=== PATIENT | male | born 1990 | race Asian ===

== ENCOUNTER 2020-01-17 11:19 | Observation (INO) ==
[2020-01-17] MEDS ORDERED: SODIUM CHLORIDE 0.9% 1000ML 1,000 ML IV SCH (11:30)
--- NOTE | 2020-01-17 11:31 | Emergency Department Note ---
History of Present Illness General Chief complaint: Abdominal Pain Stated complaint: VOMITING, FREQUENT URINATION, ABD PAIN R SIDE Time Seen by Provider: 01/17/20 11:27 History of Present Illness Maximum Pain Intensity: 7 The patient is a 29-year-old male who presented to the emergency department for evaluation of abdominal pain. The patient started noticing abdominal pain yesterday. Initially the pain was diffuse and lower but it is now localized in his right lower quadrant. The patient started having symptoms yesterday which include nausea vomiting as well as diarrhea. He has had no fever. He denies having any hematuria or back pain. He does noticed some epigastric pain which relieved with belching. The patient has not been seen by any provider for the symptoms. The patient denies having any recent traveling. He denies having any cough or URI symptoms. The patient's pain is moderate and worsened with any movement or ambulation. The patient states his pain is minimally relieved with lying still. Home Medications Home Medications Medication Instructions Recorded Confirmed Type No Known Home Medications 01/17/20 01/17/20 History Allergies Allergy/AdvReac Type Severity Reaction Status Date / Time No Known Allergies Allergy Verified 01/17/20 13:47 Past Med/Surg History Medical History Seasonal allergies Social History Feels Safe at Home: Yes Smoking Status: Never smoker Hx Alcohol Use: Yes Hx Substance Use: No Review of Systems See HPI for pertinent positives & negatives. and A total of 10 systems reviewed and were otherwise negative Physical Exam Vital Signs Vital Signs - 24 hr 01/17/20 11:21 01/17/20 11:51 01/17/20 12:33 Temperature 36.7 C Temperature Source Oral Pulse Rate 94 H 71 Pulse Rate [Left Finger] Pulse Rate from SpO2 Sensor 70 Pulse Rhythm [Left Finger] Respiratory Rate 18 15 Respiratory Effort / Characteristics Respiratory Depth Normal Respiratory Pattern Blood Pressure 146/79 H 107/69 Blood Pressure [Left Arm] Blood Pressure Mean 101 82 Blood Pressure Mean [Left Arm] Blood Pressure Position [Left Arm] Pulse Oximetry 99 98 100 Oxygen Delivery Method Room Air Room Air Sepsis Recent Fever Within 48 Hours No Sepsis Action Taken by Nursing No Action Required 01/17/20 12:36 01/17/20 12:40 01/17/20 12:50 Temperature Temperature Source Pulse Rate 59 L 87 75 Pulse Rate [Left Finger] Pulse Rate from SpO2 Sensor 59 L 89 79 Pulse Rhythm [Left Finger] Respiratory Rate 16 20 15 Respiratory Effort / Characteristics Respiratory Depth Respiratory Pattern Blood Pressure Blood Pressure [Left Arm] Blood Pressure Mean Blood Pressure Mean [Left Arm] Blood Pressure Position [Left Arm] Pulse Oximetry 100 98 97 Oxygen Delivery Method Sepsis Recent Fever Within 48 Hours Sepsis Action Taken by Nursing 01/17/20 13:00 01/17/20 13:10 01/17/20 13:20 Temperature Temperature Source Pulse Rate 59 L 66 62 Pulse Rate [Left Finger] Pulse Rate from SpO2 Sensor 59 L 67 62 Pulse Rhythm [Left Finger] Respiratory Rate 20 18 18 Respiratory Effort / Characteristics Respiratory Depth Respiratory Pattern Blood Pressure Blood Pressure [Left Arm] Blood Pressure Mean Blood Pressure Mean [Left Arm] Blood Pressure Position [Left Arm] Pulse Oximetry 98 98 99 Oxygen Delivery Method Sepsis Recent Fever Within 48 Hours Sepsis Action Taken by Nursing 01/17/20 13:21 01/17/20 13:41 Temperature 37.4 C Temperature Source Oral Pulse Rate 62 Pulse Rate [Left Finger] 70 Pulse Rate from SpO2 Sensor 63 Pulse Rhythm [Left Finger] Regular Respiratory Rate 18 18 Respiratory Effort / Characteristics Non-Labored Spontaneous Normal for Patient Respiratory Depth Normal Respiratory Pattern Regular Blood Pressure 107/74 Blood Pressure [Left Arm] 121/69 Blood Pressure Mean 86 Blood Pressure Mean [Left Arm] 86 Blood Pressure Position [Left Arm] Semi-fowlers Pulse Oximetry 99 100 Oxygen Delivery Method Room Air Room Air Sepsis Recent Fever Within 48 Hours Sepsis Action Taken by Nursing GENERAL: Patient is awake alert in no acute distress patient is resting comfortably and showing no signs of anxiety EYES: The conjunctivae are clear. The pupils are round and reactive. EARS, NOSE, MOUTH AND THROAT: The nose is without any evidence of any deformity. Mucous membranes are moist. Tongue is midline. NECK: The neck is nontender and supple. RESPIRATORY: Normal respiratory effort is noted there is no evidence of wheezing rhonchi or rales CARDIOVASCULAR: Regular rate and rhythm noted there no murmurs rubs or gallops normal S1 normal S2. GASTROINTESTINAL: The abdomen is moderately distended and diffusely tender. There is guarding in the right lower quadrant. MUSCULOSKELETAL/EXTREMITIES: There is no evidence of gross deformity full range of motion is noted in the hips and shoulders. SKIN: There is no obvious evidence of any rash. There are no petechiae, pallor or cyanosis noted. NEUROLOGIC: Patient is awake alert and oriented x3. Course Course 1225: I reevaluated the patient to discuss his CAT scan report with him. He is very uncomfortable and at this time is requesting medication for pain 1230: I discussed this case with Josephine who is covering for surgery. They will evaluate the patient in the emergency department for further management and disposition. Administered Medications Fentanyl Citrate (Fentanyl Citrate) 50 mcg IV Q15M PRN PRN Reason: Pain Stop: 01/31/20 12:24 Last Admin: 01/17/20 12:32 Dose: 50 mcg Documented by: [id number] Ioversol (Optiray 320 100ml) 94 ml IV ONCE PRN PRN Reason: Interaction Checking Stop: 01/21/20 12:02 Last Admin: 01/17/20 12:04 Dose: 94 ml Documented by: [id number] Discontinued Medications Sodium Chloride (Nss 1000ml) 1,000 mls @ 999 mls/hr IV .Q1H1M MAGALIS Stop: 01/17/20 12:30 Last Infusion: 01/17/20 13:22 Dose: 0 mls/hr Documented by: [id number] Admin: 01/17/20 11:47 Dose: 999 mls/hr Documented by: [id number] Cefoxitin Sodium (Mefoxin) 2,000 mg in 60 mls @ 100 mls/hr IV NOW STA Stop: 01/17/20 13:35 Last Infusion: 01/17/20 14:30 Dose: 0 mls/hr Documented by: [id number] Admin: 01/17/20 14:29 Dose: 100 mls/hr Documented by: [id number] Ondansetron HCl (Zofran) 4 mg IV NOW STA Stop: 01/17/20 12:26 Last Admin: 01/17/20 12:32 Dose: 4 mg Documented by: [id number] Medical Decision Making Differential Diagnosis Etiologies such as appendicitis, diverticulitis, obstruction, inflammatory bowel disease, renal colic, PUD, biliary pathology, pancreatitis, mesenteric ischemia, aortic pathology, infections, genitourinary, UTI, perforated viscus, as well as others were entertained. Medical Records Attestation: I reviewed the patient's medical records. Home Medications Current Medication List: was personally reviewed by me Laboratory Data Attestation: I reviewed the patient's lab results. Result diagrams: 01/17/20 11:45 01/17/20 11:45 Lab Results 01/17/20 01/17/20 01/17/20 Range/Units 11:45 11:45 11:52 WBC 16.96 H (4.8-10.8) K/uL RBC 5.77 (4.7-6.1) M/uL Hgb 16.8 (14.0-18.0) g/dL POC Hgb 17.0 (14.0-18.0) g/dl Hct 48.6 (42-52) % POC Hct 50 (42-52) % MCV 84.2 (80-100) fL MCH 29.1 (25-34) pg MCHC 34.6 (32-36) g/dL RDW Std Deviation 42.0 (36.4-46.3) fL RDW Coeff of Rickie 13.7 (11.5-14.5) % Plt Count 283 (130-400) K/uL MPV 11.4 H (7.4-10.4) fL Immature Gran % (Auto) 0.2 % Neut % (Auto) 80.0 % Lymph % (Auto) 12.4 % Greene % (Auto) 7.1 % Eos % (Auto) 0.2 % Baso % (Auto) 0.1 % Immature Gran # (Auto) 0.04 H (0.00-0.02) K/uL Neut # (Auto) 13.57 H (1.4-6.5) K/uL Lymph # (Auto) 2.10 (1.2-3.4) K/uL Greene # (Auto) 1.20 H (0.11-0.59) K/uL Eos # (Auto) 0.04 (0-0.5) K/uL Baso # (Auto) 0.01 (0-0.2) K/uL POC Sodium 137 (135-144) mmol/L Sodium 136 (136-145) mmol/L POC Potassium 3.9 (3.3-5.0) mmol/L Potassium 3.8 (3.5-5.1) mmol/L POC Chloride 100 L (101-112) mmol/L Chloride 103 (98-107) mmol/L Carbon Dioxide 28 (21-32) mmol/L POC Total CO2 27 (24-31) mEq/l Anion Gap 6.0 (3-11) POC Anion Gap 16.0 (16-25) mmol/L POC BUN 8 (7-18) mg/dl BUN 10 (7-18) mg/dl Creatinine 1.04 (0.6-1.4) mg/dl POC Creatinine 0.9 (0.6-1.3) mg/dl Est Cr Clr Drug Dosing 91.6 ml/min Est GFR ( Amer) 111.1 Est GFR (Non-Af Amer) 95.9 BUN/Creatinine Ratio 9.5 L (10-20) Glucose 114 H (70-99) mg/dl POC Glucose (other) 119 H (70-99) mg/dl Calcium 9.2 (8.5-10.1) mg/dl POC Ioniz Calcium Tiffanie 1.20 (1.12-1.32) mmol/l Total Bilirubin 0.7 (0.2-1) mg/dl AST 12 L (15-37) U/L ALT 24 (12-78) U/L Alkaline Phosphatase 110 (45-117) U/L Total Protein 8.2 (6.4-8.2) gm/dl Albumin 4.1 (3.4-5.0) gm/dl Globulin 4.1 H (2.5-4.0) gm/dl Albumin/Globulin Ratio 1.0 (0.9-2) Lipase 105 (73-393) U/L Imaging Data Radiologist's Impression: CT abd pelvis IV con only CT DOSE: 513.22 mGycm HISTORY: RLQ pain TECHNIQUE: Multiaxial CT images of the abdomen and pelvis were performed following the use of intravenous contrast. A dose lowering technique was utilized adhering to the principles of ALARA. COMPARISON STUDY: None. FINDINGS: Lung bases are clear. Liver spleen and pancreas are unremarkable. Kidneys enhance uniformly. Small bowel and to a lesser extent colon demonstrates a slight degree of wall edematous change. This is suggestive of nonspecific enteritis./:/The appendix is also somewhat distended at 10 mm with a small contained appendicolith. This pot entially indicates secondary infiltrative change and/or edematous change of the appendix due to the surrounding small bowel inflammatory change versus enteritis as well as acute appendicitis. There is no evidence for abscess collection or obstructive change. IMPRESSION: 1. Findings consistent with mild generalized small bowel and to a lesser extent colonic enteritis. 2. Distended appendix at 10 mm with a small contained appendicolith. 3. This examination is consistent with that of appendicitis, with superimposed enteritis. 4. Possibility of appendicitis secondary to the inflammatory process the bowel is also considered. 5. No evidence for abscess collection or obstructive change. ACT 112: Negative or not required by law. The above report was generated using voice recognition software. It may contain grammatical, syntax or spelling errors. Electronically signed by: Kody Espinoza M.D. 01/17/2020 12:20 PM Dictated: 01/17/20 1214 Transcribed: 01/17/20 1214 Blood Pressure Blood Pressure Findings: Elevated blood pressure Blood Pressure Disposition: elevated BP felt to be situational MDM Narrative The patient is a 29-year-old male who presented to the emergency department for an evaluation of abdominal pain. The patient's history and physical exam appear to be consistent with appendicitis but he also had nausea vomiting and some diarrhea. For this reason further laboratory and radiographic studies were obtained. I discussed the patient's laboratory and radiographic studies with him. CAT scan appeared to be consistent with appendicitis as well as enteritis. For this reason I discussed this case with the on-call general surgeon. Kena mena agreed to evaluate the patient in the emergency department for further management disposition. The patient was treated with IV fluids and IV pain medication in the emergency department. On subsequent reevaluation he was feeling much better. Impression & Plan Acute appendicitis, Abdominal pain, Enteritis Discharge Plan Visit Data *Final* Discharge Date/Time: 01/17/20 13:21 Chief Complaint: Abdominal Pain Stated Complaint: VOMITING, FREQUENT URINATION, ABD PAIN R SIDE ED Provider: Renan Gonzalez Discharge Problem: Acute appendicitis, Abdominal pain, Enteritis Patient Disposition: Still a Patient Condition: Good Discharge Instructions Interventions: ED Discharge Assessment Last Done: 01/17/20 13:21 Discharge Problem: Acute appendicitis Qualifiers: Acute appendicitis type: with localized peritonitis Appendicitis gangrene presence: without gangrene Appendicitis perforation presence: without perforation Appendicitis abscess presence: without abscess Qualified Code(s): K35.30 - Acute appendicitis with localized peritonitis, without perforation or gangrene Abdominal pain Qualifiers: Abdominal location: right lower quadrant Qualified Code(s): R10.31 - Right lower quadrant pain
[2020-01-17 12:02] LABS: Basophils # (auto) 0.01 K/uL (0-0.2); Basophils % (auto) 0.1 %; Eosinophils # (auto) 0.04 K/uL (0-0.5); Eosinophils % (auto) 0.2 %; Hematocrit (blood only) 48.6 % (42-52); Hemoglobin 16.8 g/dL (14.0-18.0); Immature Granulocytes # (auto) 0.04 K/uL (0.00-0.02); Immature Granulocytes % (auto) 0.2 %; Lymphocytes % (auto) 12.4 %; Mean Corpuscular Hemoglobin 29.1 pg (25-34); Mean Corpuscular Hgb Conc 34.6 g/dL (32-36); Mean Corpuscular Volume 84.2 fL (80-100); Mean Platelet Volume 11.4 fL (7.4-10.4); Monocytes % (auto) 7.1 %; Neutrophils # (auto) 13.57 K/uL (1.4-6.5); Platelet Count 283 K/uL (130-400); RDW Coefficient of Variation 13.7 % (11.5-14.5); Red Blood Count 5.77 M/uL (4.7-6.1); White Blood Count 16.96 K/uL (4.8-10.8)
[2020-01-17] MEDS ORDERED: IOVERSOL 100ml IV PRN (12:03)
[2020-01-17 12:05] LABS: iSTAT Creatinine 0.9 mg/dl (0.6-1.3); iSTAT Ionized Calcium 1.2 mmol/l (1.12-1.32); iSTAT Potassium 3.9 mmol/L (3.3-5.0)
[2020-01-17 12:20] LABS: Albumin Level 4.1 gm/dl (3.4-5.0); BUN Creatinine Ratio 9.5 (10-20); Calcium 9.2 mg/dl (8.5-10.1); Creatinine Clr Calc Pharmacy 91.6 ml/min; Est GFR (African American) 111.1; Est GFR (Non-African American) 95.9; Potassium 3.8 mmol/L (3.5-5.1)
--- NOTE | 2020-01-17 12:22 | CT Scan Report ---
CT abd pelvis IV con only CT DOSE: 513.22 mGycm HISTORY: RLQ pain TECHNIQUE: Multiaxial CT images of the abdomen and pelvis were performed following the use of intrave nous contrast. A dose lowering technique was utilized adhering to the principles of ALARA. COMPARISON STUDY: None. FINDINGS: Lung bases are clear. Liver spleen and pancreas are unremarkable. Kidneys enhance uniformly . Small bowel and to a lesser extent colon demonstrates a slight degree of wall edematous change. This is suggestive of nonspecific enteritis./:/The appendix is also somewhat distended at 10 mm with a sma ll contained appendicolith. This potentially indicates secondary infiltrative change and/or edematous change of the appendix due to the surrounding small bowel inflammatory change versus enteritis as we ll as acute appendicitis. There is no evidence for abscess collection or obstructive change. IMPRESSION: 1. Findings consistent with mild generalized small bowel and to a lesser extent colonic enteritis. 2. Distended appendix at 10 mm with a small contained appendicolith. 3. This examination is consistent with that of appendicitis, with superimposed enteritis. 4. Possibility of appendicitis secondary to the inflammatory process the bowel is also considered. 5. No evidence for abscess collection or obstructive change. ACT 112: Negative or not required by law. The above report was generated using voice recognition software. It may contain grammatical, syntax or spelling errors. Electronically signed by: Kody Espinoza M.D. 01/17/2020 12:20 PM
[2020-01-17 12:23] LABS: Bilirubin,Total 0.7 mg/dl (0.2-1); Globulin 4.1 gm/dl (2.5-4.0); Total Protein 8.2 gm/dl (6.4-8.2)
[2020-01-17] MEDS ORDERED: ONDANSETRON INJ 2 MG/ML 2 ML VIAL IV STA (12:25)
[2020-01-17] MEDS ORDERED: fentaNYL citrate 100 MCG/2 ML VIAL IV PRN ×2 (12:25→13:16)
[2020-01-17] MEDS ORDERED: NEOSTIGMINE METHYLSULFATE 5 MG/5 ML SYR ONE (13:14)
[2020-01-17] MEDS ORDERED: DEXAMETHASONE SOD INJ 4 MG/ML VIAL ONE (13:14)
[2020-01-17] MEDS ORDERED: PROPOFOL IV EMULSION 10 MG/ML 20 ML VIAL IV ONE (13:14)
[2020-01-17] MEDS ORDERED: ONDANSETRON INJ 2 MG/ML 2 ML VIAL ONE (13:14)
[2020-01-17] MEDS ORDERED: GLYCOPYRROLATE 0.2 MG/ML VIAL ONE (13:14)
[2020-01-17] MEDS ORDERED: LIDOCAINE HCL 2% 2 ML VIAL/AMP(20MG/ML) INFIL ONE (13:14)
[2020-01-17] MEDS ORDERED: ROCURONIUM BROMIDE 10 MG/ML 5 ML VIAL ONE (13:14)
[2020-01-17] MEDS ORDERED: MIDAZOLAM HCL 1 MG/ML 2ML VIAL ONE (13:15)
[2020-01-17] MEDS ORDERED: fentaNYL citrate 100 MCG/2 ML VIAL ONE ×2 (13:15→14:51)
[2020-01-17] MEDS ORDERED: ePHEDrine sulfate 50 MG/ML AMP IV PRN (13:16)
[2020-01-17] MEDS ORDERED: LABETALOL HCL IV 5 MG/ML 20ML IV PRN (13:16)
[2020-01-17] MEDS ORDERED: PHENYLEPHRINE 100MCG/ML 5ML SYR IV PRN (13:16)
[2020-01-17] MEDS ORDERED: ONDANSETRON INJ 2 MG/ML 2 ML VIAL IV PRN ×2 (13:16→16:58)
[2020-01-17] MEDS ORDERED: HYDROmorphone INJ 1 MG/ML SYRINGE IV PRN (13:16)
[2020-01-17] MEDS ORDERED: ATROPINE SULFATE 0.1 MG/ML 10ML SYR IV PRN (13:16)
[2020-01-17] MEDS ORDERED: MEPERIDINE HCL 25 MG/ML CARP/VIAL IV PRN (13:16)
--- NOTE | 2020-01-17 13:16 | History & Physical Report ---
Date of Service January 17, 2020 Assessment & Plan (1) Acute appendicitis: This is a 29y M with no significant PMH who presents to the [facility] ED on 01/17/20 with complaints of abdominal pain and vomiting. Workup in the ED revealed findings concerning for acute appendicitis, distended appendix to 10mm & contained appendicolith, along with superimposed enteritis. Patient is acutely tender to palpation in the RLQ and WBC 16.9. We will make him NPO with IVF and start pre-op abx. At this time patient is agreeable to surgical intervention for laparoscopic appendectomy. Dr. Crowley will be by to obtain surgical consent. History of Present Illness Primary Care Provider: NO PCP This is a 29y M with no significant PMH who presents to the [facility] ED on 01/17/20 with complaints of abdominal pain and vomiting. The patient reports his lower abdominal pain started around 6pm yesterday evening after drinking milk. He initially thought he was getting sick due to lactose intolerance. Around 8pm his pain was mostly located in the right lower quadrant and describes it as a constant and dull discomfort. He had a BM and felt somewhat better, but then developed diarrhea x2 thereafter. His symptoms persisted and he ended up vomiting yesterday evening. He tried going to bed, but was awake every 30 minutes or so in pain. He tried multiple times to have a bowel movement during the night/early AM without success. He drank some Gatorade and a had a 1/2 cracker this AM when he ultimately woke up, but he threw it up. He presented to the ED as his pain and symptoms continued. In the ED a ct a/p was performed that revealed findings consistent with appendicitis with superimposed enteritis and patient with a WBC of 16.9. Patient reports his abdominal pain is 7-8/10 and worse with certain movements. He has not been around any sick contacts that he is aware of. Surgery was consulted for further evaluation. Allergies Allergy/AdvReac Type Severity Reaction Status Date / Time No Known Allergies Allergy Verified 01/17/20 13:47 Home Medications Home Medications Medication Instructions Recorded Confirmed Type No Known Home Medications 01/17/20 01/17/20 History Past Med/Surg History Medical History Seasonal allergies Social History Feels Safe at Home: Yes Smoking Status: Never smoker Hx Alcohol Use: Yes Hx Substance Use: No Review of Systems Constitutional: + chills; no fever Respiratory: some shortness of breath secondary to pain Cardiovascular: no chest pain Gastrointestinal: + abdominal pain (primarily located in the right lower abdomen), + bloating, + nausea, + vomiting and + diarrhea/loose stools Physical Exam Physical Exam: awake/alert Constitutional: well developed, well nourished and cooperative Respiratory: normal respiratory effort Gastrointestinal (Abdomen): Inspection/Auscultation: + abdomen distended (mild); no abdominal surgical incision Percussion/Palpation: + abdomen tender (ttp in the RLQ), + guarding and abdomen soft Results & Data Results & Data ([facility]) Vital Signs (Past 12 Hours) Vital Signs Temp Pulse Resp BP Pulse Ox 01/17/20 12:36 59 L 16 100 01/17/20 12:33 71 15 107/69 100 01/17/20 11:51 98 01/17/20 11:21 36.7 C 94 H 18 146/[address] abd pelvis IV con only CT DOSE: 513.22 mGycm HISTORY: RLQ pain TECHNIQUE: Multiaxial CT images of the abdomen and pelvis were performed following the use of intravenous contrast. A dose lowering technique was utilized adhering to the principles of ALARA. COMPARISON STUDY: None. FINDINGS: Lung bases are clear. Liver spleen and pancreas are unremarkable. Kidneys enhance uniformly. Small bowel and to a lesser extent colon demonstrates a slight degree of wall edematous change. This is suggestive of nonspecific enteritis./:/The appendix is also somewhat distended at 10 mm with a small contained appendicolith. This potentially indicates secondary infiltrative change and/or edematous change of the appendix due to the surrounding small bowel inflammatory change versus en teritis as well as acute appendicitis. There is no evidence for abscess collection or obstructive change. IMPRESSION: 1. Findings consistent with mild generalized small bowel and to a lesser extent colonic enteritis. 2. Distended appendix at 10 mm with a small contained appendicolith. 3. This examination is consistent with that of appendicitis, with superimposed enteritis. 4. Possibility of appendicitis secondary to the inflammatory process the bowel is also considered. 5. No evidence for abscess collection or obstructive change. ACT 112: Negative or not required by law. The above report was generated using voice recognition software. It may contain grammatical, syntax or spelling errors. Electronically signed by: Kody Espinoza M.D. 01/17/2020 12:20 PM Supervising Physician Co-Signing Physician Notes Pnt seen and examined, agree with above. 29 y/o male with 24 hours of abdominal pain that migrated to RLQ. + diarrhea, no personal or family history of IBD. afvss, abd ttp in rlq with localized guarding. wbc 16. ct with 10mm appendix with appendicolith and inflammation, some surrounding enteritis and colitis. acute appendicitis plan for laparoscopic appendectomy the risk were discussed to include but not limited to bleeding, infection, abscess, open surgery, need for future or more extensive surgery, damage to surrounding structures, burn injury to piercing, normal appendix, and risks of anesthesia. PG Care Time/CCT Total # of Minutes Spent Total Time Spent with Patient: Total time spent is greater than 50% in coordination of care (as documented) at patient's floor/unit and/or counseling patient: Coding Level of Care Code 17332 OBS Care - Level 3 Diagnoses Acute appendicitis K35.30 Acute appendicitis type: with localized peritonitis Appendicitis abscess presence: without abscess Appendicitis gangrene presence: without gangrene Appendicitis perforation presence: without perforation (1) Acute appendicitis Acute appendicitis type: with localized peritonitis Appendicitis abscess presence: without abscess Appendicitis gangrene presence: without gangrene Appendicitis perforation presence: without perforation Qualified Code(s): K35.30 - Acute appendicitis with localized peritonitis, without perforation or gangrene
--- NOTE | 2020-01-17 13:17 | Anesthesiology Consultation ---
Date of Service January 17, 2020 Assessment & Plan (1) Encounter for pre-operative examination: Chart Review Chart Review: Acceptable Risk for Surgery and Patient NOT seen in Pre Admission Testing Consults Requested none History Surgery Operation Date: 01/17/20 13:20 Proposed Procedures p Laparoscopic Appendectomy - Ernesto Crowley DO, FACS Height/Weight Height: 5 ft 3 in Weight: 70.6 kg Allergies Allergy/AdvReac Type Severity Reaction Status Date / Time No Known Allergies Allergy Unverified 01/17/20 12:06 Medications Home Medications Medication Instructions Recorded Confirmed Last Taken No Known Home Medications 01/17/20 01/17/20 Unknown Active Medications Generic Name Dose Route Start Last Admin Trade Name Freq PRN Reason Stop Dose Admin Fentanyl Citrate 50 mcg 01/17/20 12:25 01/17/20 12:32 Fentanyl Citrate IV 01/31/20 12:24 50 mcg Q15M PRN Administration Pain Ioversol 94 ml 01/17/20 12:03 01/17/20 12:04 Optiray 320 100ml IV 01/21/20 12:02 94 ml ONCE PRN Administration Interaction Checking Past Medical History Medical History Seasonal allergies Social History Smoking Status: Never smoker Hx Alcohol Use: Yes Hx Substance Use: No Physical Exam Vital Signs Last Vital Signs Temp 36.7 C 01/17/20 11:21 Pulse 59 L 01/17/20 12:36 Resp 16 01/17/20 12:36 BP 107/69 01/17/20 12:33 Pulse Ox 100 01/17/20 12:36 Testing Laboratory Results 01/17/20 11:45 01/17/20 11:45 01/17/20 11:52 POC Glucose (other) 119 H
[2020-01-17] MEDS ORDERED: BUPIVACAINE 0.5 % 5 MG/1 ML MPF 30ML VIAL ONE (13:27)
[2020-01-17] MEDS: cefOXitin 2,000 MG/60 ML BAG IV STA ×2 (14:28→14:29)
--- NOTE | 2020-01-17 15:50 | Operative Report ---
PG Post Operative Report Pre & Post Diagnosis Operation Date: 01/17/20 13:20 Pre-Op Diagnosis: Acute Appendicitis Post-Op Diagnosis: Acute nonperforated appendicitis I identified the patient and participated in the time-out.: Yes Procedure Operation Date: 01/17/20 13:20 Actual Procedures p Laparoscopic Appendectomy, lysis of adhesions (Not Applicable) - Ernesto Crowley DO, ROSHAN Surgeon Ernesto Crowley DO, ROSHAN [employer] Josephine Taylor Estimated Blood Loss 10 Findings Consistent with Post-Op Diagnosis Acute, suppurative, nonperforated appendicitis. Adhesions of small bowel and colon to abdominal wall and right lower quadrant, taken down with harmonic scalpel. Distal appendix inflamed and retrocecal. Specimens Appendix Anesthesia Type General Complications none Disposition Accompanied Patient To Recovery: No Disposition: Recovery Room Indications 29-year-old male presented to the emergency department 24 hours of abdominal pain that migrated to the right lower quadrant. He had tenderness at McBurney's point, and CT appeared to be consistent with acute appendicitis with secondary enteritis. Plan for laparoscopic appendectomy. The risks of the procedure were discussed, all questions were answered, and the patient agreed to proceed with surgery as planned. Description of Procedure The patient was properly identified, consented, and taken to the operating room where he was placed in the supine position. General endotracheal anesthesia was induced. SCDs and a safety belt were placed. Preoperative antibiotics were administered. A Finley catheter was not placed. The patient's abdomen was prepped and draped in the standard sterile fashion. Surgical timeout was performed and all parties were in agreement that this was the correct patient and procedure to be performed and we continued as planned. A curvilinear infraumbilical incision was made with electrocautery and deepened down to the fascia with blunt dissection. The base of the umbilicus was grasped with a Atif and elevated towards the ceiling. An incision was made in the midline fascia with a knife and entry into the peritoneum was confirmed. Stay suture of 0 Vicryl was placed and a Espinoza trocar was inserted. The abdomen was insufflated with carbon dioxide which the patient tolerated without incident. The laparoscope was inserted and no damage from initial trocar placement was noted, no gross abnormalities were noted within the 4 quadrants the abdomen. 5 mm ports were then placed in the left lower quadrant with care not to damage the epigastric vessels, and in the suprapubic midline with care not to damage the bladder. The patient was placed in Trendelenburg position and rotated towards the left. The small bowel was swept away from the right lower quadrant. The cecum and distal ileum had adhesions to the abdominal wall in the right lower quadrant. This was taken down with a combination of blunt dissection and the harmonic scalpel. The appendix was inflamed distally and appeared to be retrocecal. The cecum was grasped with an atraumatic grasper exposing the base of the appendix. The base of the appendix was healthy with no inflammation. There was no evidence of perforation. There was a mild amount of reactive fluid in the pelvis. A window was created between the base of the appendix and the mesoappendix. A galindo loaded endoscopic stapler was then used to divide the appendix at its base. The harmonic scalpel was then used to divide the mesoappendix, as well as to mobilize the right colon to expose the tip of the appendix. Hemostasis was good. The appendix was placed in an Endo Catch bag and removed through the umbilical port site. The right lower quadrant and pelvis was irrigated and hemostasis was found to be good. 5 mm trochars were removed under direct visualization and the abdomen was allowed to collapse. The umbilical port site fascia was closed with 0 Vicryl suture. The wound was irrigated, and the skin of all ports was closed with 4-0 Monocryl subcuticular sutures. Dermabond was placed over the wounds. The patient was extubated in the operating room and taken to the PACU where he recovered without apparent incident. All sponge, instrument and needle counts were correct at the conclusion of the procedure. The patient tolerated the procedure well. The physician's [employer] assistant manager was present and scrubbed for the entirety of the procedure. She was critical in positioning the patient, prepping and draping, retraction and exposure, driving the laparoscope, removal of the appendix, closure the incisions, placement of the dressings. I attest to the content of the Intraoperative Record and any orders documented therein. Any exceptions are noted below.
--- NOTE | 2020-01-17 16:36 | Anesthesiology Progress Note ---
Date of Service January 17, 2020 Anesthesia Post Procedure Vital Signs Vital Signs: Temp Pulse Pulse Pulse Resp BP BP 01/17/20 16:30 75 21 123/79 01/17/20 16:22 36.6 C 108 H 18 121/98 01/17/20 13:41 37.4 C 70 18 121/69 01/17/20 13:21 62 18 107/74 01/17/20 13:20 62 18 01/17/20 13:10 66 18 01/17/20 13:00 59 L 20 01/17/20 12:50 75 15 01/17/20 12:40 87 20 01/17/20 12:36 59 L 16 01/17/20 12:33 71 15 107/69 01/17/20 11:51 01/17/20 11:21 36.7 C 94 H 18 146/79 H Pulse Ox 01/17/20 16:30 100 01/17/20 16:22 100 01/17/20 13:41 100 01/17/20 13:21 99 01/17/20 13:20 99 01/17/20 13:10 98 01/17/20 13:00 98 01/17/20 12:50 97 01/17/20 12:40 98 01/17/20 12:36 100 01/17/20 12:33 100 01/17/20 11:51 98 01/17/20 11:21 99 Transfer of Care Handoff Completed per policy Notes Mental Status: alert / awake / arousable Patient Amnestic to Procedure: Yes Nausea / Vomiting: adequately controlled Pain: adequately controlled Airway Patency, RR, SpO2: stable & adequate BP & HR: stable & adequate Hydration State: stable & adequate Anesthetic Complications: no major complications apparent
[2020-01-17] MEDS ORDERED: OXYCODONE/ACETAMINOPHEN 5mg/325mg TAB PO PRN ×2 (16:58)
[2020-01-17] MEDS ORDERED: MoRPHine SULFATE 2 MG/ML CARP IV PRN (17:14)
[2020-01-17] MEDS ORDERED: MoRPHine SULFATE 4 MG/ML 1 ML CARP\\VIAL IV PRN (17:15)
[2020-01-17] MEDS: LACTATED RINGER'S 1,000 ML IV SCH (18:41)
[2020-01-17] MEDS: cefOXitin 2,000 MG in DEXTROSE 5% 50 ML IV SCH (20:21)
[2020-01-17 22:03] LABS: Appearance Urine Clear (Clear); Bilirubin Urine Negative (Negative); Blood Urine Negative (Negative); Color Urine Yellow; Glucose Urine UA Negative (Negative); Ketones Urine Negative (Negative); Leukocyte Esterase Urine Negative (Negative); Nitrite Urine Negative (Negative); Protein Urine Negative (Negative); Specific Gravity Urine 1.009 (1.000-1.030); Urobilinogen Urine Negative (Negative)
[2020-01-18] MEDS: cefOXitin 2,000 MG in DEXTROSE 5% 50 ML IV SCH ×2 (01:55→08:06)
[2020-01-18 04:57] LABS: Hematocrit (blood only) 44.8 % (42-52); Hemoglobin 15.5 g/dL (14.0-18.0); Immature Granulocytes # (auto) 0.07 K/uL (0.00-0.02); Immature Granulocytes % (auto) 0.4 %; Lymphocytes # (auto) 0.74 K/uL (1.2-3.4); Lymphocytes % (auto) 4.5 %; Mean Corpuscular Hemoglobin 29.9 pg (25-34); Mean Corpuscular Hgb Conc 34.6 g/dL (32-36); Mean Corpuscular Volume 86.3 fL (80-100); Mean Platelet Volume 11.2 fL (7.4-10.4); Monocytes # (auto) 1.16 K/uL (0.11-0.59); Monocytes % (auto) 7.1 %; Neutrophils # (auto) 14.37 K/uL (1.4-6.5); Platelet Count 266 K/uL (130-400); RDW Standard Deviation 44.1 fL (36.4-46.3); Red Blood Count 5.19 M/uL (4.7-6.1); White Blood Count 16.34 K/uL (4.8-10.8)
[2020-01-18 05:15] LABS: BUN Creatinine Ratio 6.1 (10-20); Creatinine Clr Calc Pharmacy 84.3 ml/min; Est GFR (African American) 100.5; Est GFR (Non-African American) 86.7; Potassium 4.1 mmol/L (3.5-5.1)
[2020-01-18] MEDS: LACTATED RINGER'S 1,000 ML IV SCH (07:37)
--- NOTE | 2020-01-18 07:54 | Surgery Progress Note ---
Date of Service January 18, 2020 Assessment & Plan (1) Acute appendicitis: POD#1 laparoscopic appendectomy Patient feeling much better than admission WBC 16.3 from 16.9 yesterday, patient's VSS and is afebrile Incisions c/d/i with dermabond overtop, no sign of infection Will advance diet as tolerates today and heplock IVF Continue ambulation as tolerates Will check up on later today Supervising Physician Co-Signing Physician Notes pnt seen and examined, agree with above. POD#1 lap appendectomy for non perforated appendicitis. doing well, feels much better than prior to surgery. tolerated diet, pain controlled. wbc 16. d/c to home, return precautions and activity and wound care instructions given. call for virtual follow up in 2 weeks. Subjective Patient feeling well. Has some mild gas pains- has been ambulating and getting some relief doing so. Overall is feeling much better than admission and pain is well managed. He tolerated liquids yesterday without nausea/vomiting or increased abdominal pain. Physical Exam Physical Exam: awake/alert Respiratory: normal respiratory effort Gastrointestinal (Abdomen): Inspection/Auscultation: + abdominal surgical incision (c/d/i with dermabond overtop) Percussion/Palpation: + abdomen tender (mild discomfort to palpation in the RLQ) and abdomen soft Results & Data Vital Signs (Past 12 Hours) Vital Signs Temp Pulse Pulse Resp BP Pulse Ox 01/18/20 07:08 36.8 C 98 H 18 113/79 100 01/18/20 03:59 37.0 C 107 H 18 113/62 96 01/17/20 23:17 37.1 C 72 16 102/65 98 PG Care Time/CCT Total # of Minutes Spent Total Time Spent with Patient: Total time spent is greater than 50% in coordination of care (as documented) at patient's floor/unit and/or counseling patient: Coding Level of Care Code None Diagnoses Acute appendicitis K35.30 Acute appendicitis type: with localized peritonitis Appendicitis abscess presence: without abscess Appendicitis gangrene presence: without gangrene Appendicitis perforation presence: without perforation (1) Acute appendicitis Acute appendicitis type: with localized peritonitis Appendicitis abscess presence: without abscess Appendicitis gangrene presence: without gangrene Appendicitis perforation presence: without perforation Qualified Code(s): K35.30 - Acute appendicitis with localized peritonitis, without perforation or gangrene
--- NOTE | 2020-01-23 08:51 | Discharge Summary ---
Date of Service January 23, 2020 Admission HPI Per Admitting Provider This is a 29y M with no significant PMH who presents to the [facility] ED on 01/17/20 with complaints of abdominal pain and vomiting. The patient reports his lower abdominal pain started around 6pm yesterday evening after drinking milk. He initially thought he was getting sick due to lactose intolerance. Around 8pm his pain was mostly located in the right lower quadrant and describes it as a constant and dull discomfort. He had a BM and felt somewhat better, but then developed diarrhea x2 thereafter. His symptoms persisted and he ended up vomiting yesterday evening. He tried going to bed, but was awake every 30 minutes or so in pain. He tried multiple times to have a bowel movement during the night/early AM without success. He drank some Gatorade and a had a 1/2 cracker this AM when he ultimately woke up, but he threw it up. He presented to the ED as his pain and symptoms continued. In the ED a ct a/p was performed that revealed findings consistent with appendicitis with superimposed enteritis and patient with a WBC of 16.9. Patient reports his abdominal pain is 7-8/10 and worse with certain movements. He has not been around any sick contacts that he is aware of. Surgery was consulted for further evaluation. Principal Diagnosis acute appendicitis Discharge Exam awake/alert Constitutional well developed, well nourished and cooperative Respiratory normal respiratory effort Gastrointestinal (Abdomen) Inspection/Auscultation: + abdominal surgical incision (c/d/i with dermabond overtop) Percussion/Palpation: + abdomen tender (mild discomfort to palpation in the RLQ) and abdomen soft Discharge Data Allergies Allergy/AdvReac Type Severity Reaction Status Date / Time No Known Allergies Allergy Verified 01/17/20 13:47 Consultations 01/17/20 12:29 Consult General Surgery Stat Procedures Performed Operation Date: 01/17/20 13:20 Actual Procedures p Laparoscopic Appendectomy(Not Applicable) - Ernesto Crowley DO, FACS Ordered Studies 01/17/20 11:30 CT abd pelvis IV con only Stat Hospital Course (1) Acute appendicitis: This is a 29yM who presented to the [facility] ED on 01/17/20 with complaints of RLQ pain and vomiting. Workup in the ED revealed a WBC of 16.[address] a/p concerning for acute appendicitis, with superimposed enteritis. On examination patient was acutely tender to palpation in the RLQ. Decision was made to take the patient for surgery and patient agreeable with plan. On 01/16 the patient went to the OR with Dr. Crowley and underwent a laparoscopic appendectomy. The patient tolerated the procedure well, see operative report for full details. The patient recovered in the PACU and was transferred to the med/surg unit for overnight observation. Patient's diet was advanced as tolerated, pain managed with prn medication, and incisions clean/dry/intact. On POD#1 the patient was tolerating a regular diet, voiding on his own, pain controlled, and he was ambulating the halls. On 01/17 the patient was deemed stable for discharge to home with instructions to call the clinic for a follow up within 2 weeks. Total Time Total Time Spent Total Time Spent (In Minutes): 10 Discharge Plan Discharge Items Patient Disposition: Home - Self-Care Reason For Visit: VOMITING, FREQUENT URINATION, ABD PAIN R SIDE Discharge Diagnosis: laparoscopic appendectomy Condition on Discharge: Good Activity: Per Instructions section Lifting: No more than 10 pounds Bathing Comment: may shower, no soaking in tubs Exercise/Sports: Wait until after follow-up appointment Driving/Machine Use: Resume 3 days after discharge Non-emergency contact: Surgeon Call non-emergency contact if: you have any medication questions, your symptoms worsen, your pain is not controlled, your pain is worsening, your pain is unusual for you, you have a fever, your temperature is above 101.5, your wound has increased redness, your wound has increased drainage and your wound pain has increased Follow-up/Referrals: Ernesto Crowley DO, FACS [Physician] - 01/30/20 10:45 am (Please call the office within 2 weeks for a follow up appointment) PCP,NO [Primary Care Provider] - Diet: Regular Addtl Attending Provider Instructions: Pending Studies at Discharge: Yes Studies:: surgical pathology Stand-Alone Forms: My [email or web address] Application, Smoking Cessation Medications and DC Order Prescriptions: New oxycodone-acetaminophen [Percocet] 5-325 mg tablet 1 - 2 tab PO .q4-6h PRN (Reason: pain, for initial therapy, max 6 tabs per day) Qty: 12 RF: 0 No Action No Known Home Medications RF: 0 Discharge Orders: Discharge Order (Routine); Ordered 01/18/20 Ordered By: Josephine Taylor Admission Data Admit Date/Time: 01/17/20 16:00 Attending Provider: Ernesto Crowley Admit Provider: Ernesto Crowley Primary Care Provider: PCP,NO Other Providers: Ernesto Crowley Other Interventions: Discharge Summary Assessment (RN) Last Done: 01/18/20 10:36 DC Date/Time DO NOT enter until pt leaves facility: 01/18/20 11:23 Coding Level of Care Code D/C Day Management <30 mins Diagnoses Acute appendicitis K35.30 Acute appendicitis type: with localized peritonitis Appendicitis abscess presence: without abscess Appendicitis gangrene presence: without gangrene Appendicitis perforation presence: without perforation
== END 2020-01-18 11:23 | disposition home or self-care (01) ==
LOC: ED 11:19 → MERGE 11:19 → ASU 13:21 → 3E 13:21
DX: K35.80 Unspecified acute appendicitis